=== PATIENT | female | born 1950 | race Caucasian/White ===

== ENCOUNTER 2017-01-18 15:08 | Emergency (ER) | payer MEDICARE, BC ==
[~2017-01-18 15:08] MED LIST: ASAB PO; ASABAYER PO; ATV1 PO; CALTRA600D PO; CELEXA10 PO; CELEXA20 PO; CENTRUM TAB1 TAB PO; CO Q-10100 MG PO; COREGCR20 PO; DIOV80 PO; L20 PO; MUCINEX1200 MG PO; MULTIPLE VIT PO; PREDFORTE OPH; PREDMILDOP OPH; PRILOSEC40 MG PO; TUMERIC; VALTREX1 GM PO; VITAMIN B-121000 MC1 SL; WELLSR150 PO; ZOVI200CAP PO; unable to recall
[2017-01-18 18:14] LABS: BASOPHILS 0.5 %; BASOPHILS ABSOLUTE 0.03 10/3/uL (0.0-0.16); EOSINOPHILS 2.4 %; EOSINOPHILS ABSOLUTE 0.15 10/3/uL (0.0-0.53); HEMATOCRIT 41.1 % (36.0-48.0); HEMOGLOBIN 13.9 g/dL (12.0-16.0); IMMATURE GRANULOCYTES 0.2 %; IMMATURE GRANULOCYTES ABSOLUTE 0.01 10/3/uL (0.0-0.11); LYMPHOCYTES 41.6 %; LYMPHOCYTES ABSOLUTE 2.61 10/3/uL (0.67-4.30); MEAN CORPUS HGB CONC 33.8 g/dL (32.0-36.0); MEAN CORPUSCULAR HEMOGLOB 32.9 pg (26.0-34.0); MEAN CORPUSCULAR VOLUME 97.4 fL (80-100); MEAN PLATELET VOLUME 9.1 fL (9.2-13.0); MONOCYTES 7.5 %; MONOCYTES ABSOLUTE 0.47 10/3/uL (0.21-1.20); NEUTROPHILS 47.8 %; NEUTROPHILS ABSOLUTE 3.01 10/3/uL (2.02-8.40); PLATELET COUNT 321 10/3/uL (150-400); RED CELL COUNT 4.22 10/6/uL (4.0-5.6); WHITE BLOOD CELLS 6.3 10/3/uL (4.5-10.5)
[2017-01-18 18:15] LABS: MANUAL DIFF NO %
[2017-01-18 18:26] LABS: PARTIAL THROMBO TIME 31.3 SEC (22.5-37.2); PROTIME (NOT ORD) 12.9 SEC (12.0-14.5)
[2017-01-18 18:31] LABS: BUN (BLOOD UREA NITROGEN) 19 MG/DL (6-23); CHEST PAIN PROFILE TAT 0 Hrs 21 Mins; CHLORIDE, SERUM 101 MMOL/L (96-112); CO2 (CARBON DIOXIDE) 29 MMOL/L (24-34); CREATININE 0.96 MG/DL (0.55-1.02); GFR AFRICAN AMERICAN 71 ML/MIN (>=60); GFR NON AFRICAN AMERICAN 61 ML/MIN (>=60); GLUCOSE, SERUM 82 MG/DL (60-99); SODIUM, SERUM 140 MMOL/L (135-148); TROPONIN I <0.02 NG/ML (<0.05)
== END 2017-01-18 19:28 | disposition home or self-care (01) ==
LOC: ER 15:08
PROVIDERS: Emergency Medicine
DX: R07.89 Other chest pain (principal); M79.2 Neuralgia and neuritis, unspecified; I10 Essential (primary) hypertension; K21.9 Gastro-esophageal reflux disease without esophagitis; F32.9 Major depressive disorder, single episode, unspecified; F41.9 Anxiety disorder, unspecified; I42.7 Cardiomyopathy due to drug and external agent; Z87.891 Personal history of nicotine dependence; Z85.3 Personal history of malignant neoplasm of breast; Z88.1 Allergy status to other antibiotic agents; Z88.8 Allergy status to other drugs, medicaments and biological substances; Z79.82 Long term (current) use of aspirin; Z79.52 Long term (current) use of systemic steroids; Z79.899 Other long term (current) drug therapy
CPT/HCPCS: 71020; 80048; 83735; 84484; 85025; 85610; 85730; 93005; 99285

== ENCOUNTER 2017-06-26 21:31 | Observation (INO) | payer MEDICARE, BC ==
[~2017-06-26] VITALS: Ht 160 cm; Wt 71.0 kg
--- NOTE | ~2017-06-26 | CN ---
Consultation Report [facility] [address] [place] [place]. [address] NAME: SAMUEL PATRICIA : 48 STATUS : ADM Lindsay PAT#: [id number] AGE: 67 ADM/REG DATE : 06/26/17 MR#: [id number] REPORT SERV DATE: 06/27/17 DICTATED BY: BERNIE LAGUERRE DATE: 06/27/17 REPORT STATUS : Draft TRANSCRIBED BY: MODKike DATE: 06/27/17 NEUROLOGY CONSULTATION DATE OF CONSULTATION: 06/27/2017 REASON FOR CONSULTATION: Syncopal episode with collapse (possible stroke and/or seizure). HOSPITALIST: Dr. Xiomara Naqvi. HISTORY OF PRESENT ILLNESS: The patient is a 67-year-old female, who was [employer] yesterday with her family. She had just eaten and had shrimp and vegetables. She did not have an alcoholic beverage. 15 minutes after eating, she was sitting at the table talking with her family, she started to "feel funny," when asked to describe how she felt, she could not. She felt like she might pass out and could not form words, although she knew what she wanted to say. The patient stated she could not keep her eyes open, but she was not drowsy. She put her head down on the table because she thought she was going to pass out. The plaster patternmaker and conference services manager of a restaurant came to her rescue and laid her down on the floor on her side. She could hear voices, but thought they were at a distance. According to her family, it was reported that her left shoulder was twitching. She was not incontinent of urine or stool. She did not bite her tongue or cheek. This episode lasted 30 seconds to 1 minute. 911 was called and she was brought to [facility] for further evaluation and treatment. She did awaken after this episode, but was not drowsy. She was fairly alert and was able to communicate appropriately. She did; however, mention that she was not "herself." The patient mentions that she had a similar episode two years ago in the doctor's office. She passed out and was told that she was volume depleted. The patient went to see the [facility], and while she was out in the wooded area, she pulled 24 ticks off her body. She was not treated with antibiotics, even though she went to seek medical attention. She is concerned that she may have some sort of Belvedere spotted fever or Lyme disease. She denies any stroke, any febrile illness, but still is concerned. PAST MEDICAL HISTORY: Anxiety, post traumatic stress disorder, history of breast cancer status post mastectomy and chemotherapy, chemotherapy-induced cardiomyopathy, herpes simplex, hypertension, and GERD. PAST SURGICAL HISTORY: Corneal transplants (bilateral), tonsillectomy and adenoidectomy, and bilateral mastectomy. MEDICATIONS: Home medication list consists of aspirin 81 mg daily, calcium with vitamin D daily, vitamin D 2000 units daily, Benadryl 50 mg at bedtime p.r.n. insomnia, ophthalmic solution fluorometholone 0.1% to both eyes daily, Lasix 40 mg tablet three-fourth which is 30 mg daily, Ativan 1 mg 1100 and 1600, Ativan 0.5 mg at bedtime, Prilosec 20 mg daily, Valtrex 500 mg daily, and Diovan 40 mg daily. Consultation Report [address] [place]. [address] NAME: SAMUEL PATRICIA : 48 STATUS : ADM Lindsay PAT#: [id number] AGE: 67 ADM/REG DATE : 06/26/17 MR#: [id number] REPORT SERV DATE: 06/27/17 DICTATED BY: BERNIE LAGUERRE DATE: 06/27/17 REPORT STATUS : Draft TRANSCRIBED BY: RAGHAVENDRA DATE: 06/27/17 ALLERGIES: ALTACE, BIAXIN, ZITHROMAX, AND EPINEPHRINE. SOCIAL HISTORY: The patient is . She has four children. She teaches earth science. She does not smoke. She rarely drinks alcohol or uses illicits. FAMILY HISTORY: The patient's mother from esophageal cancer, and her father from lung cancer. She has one brother and one sister who are alive and healthy. REVIEW OF SYSTEMS: For pertinent positives, please refer to the HPI. PHYSICAL EXAMINATION: GENERAL: The patient stands 5 feet 3 inches tall and weighs 156 pounds. NEUROLOGIC: The patient is pleasant, cooperative, communicates appropriately. Occasionally, she will have a little expressive aphasia, but there is no dysarthria. No anomia. Pupils are 3 mm PERRLA. Cranial nerves 2 through 12 are intact. Vision via confrontation is full in both rubin. Ceqgmt-qt-ofhq, no ataxia. Pflx-xh-qgmh, no ataxia. Upper extremity strength is 5/5. Upper DTRs 2+ bilaterally. No sensory deficits in the upper extremities. Lower extremities strength is 5/5. Lower DTRs 2+ bilaterally. Downgoing toes. No sensory deficits. The patient has good locomotion. There is no ataxia. Romberg is negative. NECK: No carotid bruits, JVD, or thyromegaly. CHEST: Lung sounds are clear. CARDIAC: Regular rate and rhythm. LABORATORY DATA: CBC is normal. BMP is normal. Cholesterol values are mildly elevated with a total cholesterol of 170, and LDL of 100. TSH is normal. Urine drug screen is positive for benzos. CTA of the chest is negative. Chest x-ray is negative. CT of the brain, negative. ASSESSMENT/PLAN: 1. Syncopal episode of unknown etiology. The patient will undergo an EEG, be placed on seizure precautions. Orthostatic vital signs will be checked every shift. She will have an MRI of the brain without gadolinium and an MRA of the head and neck with gadolinium. Echocardiogram with bubble study will be done. 2. Multiple tick bites. Testing will be done for Belvedere Spotted fever, Ehrlichia and Lyme. In the meantime, she will be placed prophylactically on doxycycline 100 mg b.i.d. for 21 days. This is to be taken with food. Hospitalist Service was consulted with this decision. Thank you again for including us in consultation. We will continue to follow with you. Dr. Bernie Laguerre, collaborating physician was made aware of the case and plan of care. DICTATED BY: Julia Castelan DNP, ACNP- Consultation Report [address] [address] NAME: SAMUEL PATRICIA : 49 STATUS : ADM Lindsay PAT#: [id number] AGE: 67 ADM/REG DATE : 06/26/17 MR#: [id number] REPORT SERV DATE: 06/27/17 DICTATED BY: BERNIE LAGUERRE DATE: 06/27/17 REPORT STATUS : Draft TRANSCRIBED BY: RAGHAVENDRA DATE: 06/27/17 MARLENI/RAGHAVENDRA Bernie Laguerre MD / [id number] CC: Ayah Yanes M.D.
--- NOTE | ~2017-06-26 | EEG ---
Electroencephalogram [place] [address] [place]. [address] NAME: SAMUEL PATRICIA : 48 STATUS : ADM Lindsay PAT#: [id number] AGE: 67 ADM/REG DATE : 06/26/17 MR#: [id number] REPORT SERV DATE: 06/28/17 DICTATED BY: BERNIE LAGUERRE DATE: 06/28/17 REPORT STATUS : Draft TRANSCRIBED BY: MODL DATE: 06/28/17 ELECTROENCEPHALOGRAPHY REPORT ORDERING: Julia Castelan APN REASON FOR EEG: Syncope versus seizures. DESCRIPTION: 23 surface electrodes, 10-20 international placement was used. The patient was noted to be awake and drowsy throughout the study. Brief periods of stage 1 and 2 sleep were recorded. The background activity consisted of moderate voltage well-organized 10 cycles per second located in the posterior head regions. This alpha range activity attenuated well with the eye opening maneuvers. Photic stimulation produced a good driving response. No significant asymmetry of cerebral activity was present. No paroxysmal epileptiform features were noted. Moderate amount of low-voltage beta range activity was seen. Sleep spindle and vertex sharp activity was noted during light sleep. No significant abnormalities were observed. IMPRESSION: THIS EEG IS WITHIN NORMAL RANGE FOR AN AWAKE AND DROWSY STATE. BRIEF PERIODS OF LIGHT SLEEP WERE RECORDED. THE PATIENT'S HOSPITAL DIRECTOR SHOWS SINUS RHYTHM, RATE OF APPROXIMATELY 72 BEATS PER MINUTE. CLINICAL CORRELATION IS RECOMMENDED. NNAMDI/RAGHAVENDRA Bernie Laguerre MD / [id number] CC: Ayah Yanes M.D.
--- NOTE | ~2017-06-26 | HP ---
History And Physical [place] [address] [place]. [address] NAME: SAMUEL PATRICIA : 49 STATUS : ADM Lindsay PAT#: [id number] AGE: 67 ADM/REG DATE : 06/26/17 MR#: [id number] REPORT SERV DATE: 06/27/17 DICTATED BY: RITA ARIAS DATE: 06/27/17 REPORT STATUS : Draft TRANSCRIBED BY: RAGHAVENDRA DATE: 06/27/17 DATE OF ADMISSION: 06/26/2017 CHIEF COMPLAINT: Possible syncopal event. HISTORY OF PRESENT ILLNESS: The patient is a 67-year-old white female who was eating dinner at [employer], felt like she was going to faint, she went pale, her left shoulder started to shake. Apparently, she was out for about 15 minutes. Her said she may have stopped breathing. The patient denied she lose consciousness. The patient also stated she had problem forming words. It does not sound like there was any type of postictal problem. The patient denies running out of her Ativan. She does state she has an anxiety disorder. She does have a history of breast cancer, and 10 years ago she had a double mastectomy. It was a stage 3c low-grade lobular carcinoma of the right breast. The patient also apparently had a tick exposure with 25 ticks on her body recently. PAST MEDICAL HISTORY: Anxiety, PTSD, breast cancer 10 years ago. She had a cardiomyopathy after her breast cancer, which is largely resolved. She now has an ejection fraction of 51%. PAST SURGICAL HISTORY: She has corneal transplants, tonsillectomy, and a double mastectomy. SOCIAL HISTORY: Does not smoke. Rare alcohol. . She was a teacher of [employer]. She is a full code. FAMILY HISTORY: Mom of lung cancer. Dad of esophageal cancer. ALLERGIES: THE PATIENT IS ALLERGIC TO BIAXIN, CAUSES HEART ARRHYTHMIAS; EPHEDRINE AND ADDERALL. NOTE, THE PATIENT IS ALSO ALLERGIC TO ALTACE AND ZITHROMAX. MEDICATIONS: The patient is currently on aspirin 81 mg daily, vitamin D 1200 mg daily, Coreg 12.5 mg b.i.d., cholecalciferol 2000 units daily, Benadryl 50 mg at bedtime as needed, eye drops, Lasix 30 mg daily, Ativan 1 mg at 11 and at 4 o'clock and 1.5 mg at bedtime, Prilosec 20 mg daily, valacyclovir 1 mg daily, Diovan 40 mg daily. REVIEW OF SYSTEMS: CONSTITUTIONAL: No fever, sweats, or rigors. EYES: No blurred or double vision, vision loss or glaucoma. HENT: No headache, hearing loss, or tinnitus. CARDIOVASCULAR: No chest pain, palpitations. She did have syncope episode. No PND, edema, dyspnea on exertion. RESPIRATORY: No cough, wheezing, or pleuritic pain. GASTROINTESTINAL: No nausea, vomiting, hematemesis, or abdominal pain. MUSCULOSKELETAL: She does have arthralgia, arthritis. INTEGUMENT: No rash or suspicious skin lesions. NEUROLOGIC: No memory loss, gait disturbance, or weakness. HEMATOLOGIC: No anemia, iron deficiency, or B12 deficiency. History And Physical [address] [address] NAME: SAMUEL PATRICIA : 49 STATUS : ADM Lindsay PAT#: [id number] AGE: 67 ADM/REG DATE : 06/26/17 MR#: [id number] REPORT SERV DATE: 06/27/17 DICTATED BY: RITA ARIAS DATE: 06/27/17 REPORT STATUS : Draft TRANSCRIBED BY: RAGHAVENDRA DATE: 06/27/17 PSYCHIATRIC: She does have history of depression and anxiety. : No dysuria, hematuria, or nephrolithiasis. ENDOCRINE: No history of diabetes. PHYSICAL EXAMINATION: VITAL SIGNS: Blood pressure is 138/58, temperature 97.6, pulse 73, respirations 20, O2 saturation 98% on room air. CONSTITUTIONAL: Alert, appropriate. PSYCHIATRIC: Oriented x3. Memory intact. Affect appropriate. HEENT: Atraumatic and normocephalic. Oral palate without lesion. EYES: Pupils are reactive. Anicteric. Conjunctivae clear. NECK: No adenopathy. Supple. No thyromegaly or masses. RESPIRATORY: Clear to percussion and auscultation. No chest wall tenderness. CARDIOVASCULAR: Regular rate and rhythm. No murmurs. No carotid or femoral bruits. Distal pulses intact. ABDOMEN: Soft, nontender. No masses. No hepatosplenomegaly. No hernias. Bowel sounds present. SKIN: No rash or suspicious lesions. NEUROLOGIC: Cranial nerves II through XII intact. Deep tendon reflexes are symmetric. Sensation intact. LYMPHATIC: No adenopathy in the neck, axilla, or femoral region. No peripheral edema. MUSCULOSKELETAL: Range of motion intact in upper and lower extremities. DATA: Head CT unremarkable. LABORATORY WORK: Hemoglobin 13.7, white count 9.2, platelet 262. Sodium 139, potassium 4.2, BUN 19, creatinine 1.3, glucose 130. Lactate 1.4. Sed rate 7. TSH 1.38. IMPRESSION/PLAN: 1. Transient ischemic attack versus seizure. We will ask Neurology to see. We will order MRI and EEG. The patient is already on an aspirin. 2. History of breast cancer. 3. Nonischemic cardiomyopathy, largely resolved. 4. Anxiety disorder. 5. Hypertension. NGM/MODL Rita Arias MD / [id number] CC: Raghav Cisneros M.D.
--- NOTE | ~2017-06-26 | DS ---
Discharge Summary [facility] [address] [place]. [address] NAME: SAMUEL PATRICIA : 48 STATUS : ADM Lindsay PAT#: [id number] AGE: 67 ADM/REG DATE : 06/26/17 MR#: [id number] REPORT SERV DATE: 06/28/17 DICTATED BY: XIOMARA NAQVI DATE: 06/28/17 REPORT STATUS : Draft TRANSCRIBED BY: MODL DATE: 06/28/17 ADMISSION DATE: 06/26/2017 DISCHARGE DATE: 06/28/2017 DISCHARGE DIAGNOSES: 1. Syncope/near syncope episode. 2. Acute kidney injury and dehydration. 3. Anxiety. 4. Hypertension. 5. Recent multiple tick bite, doxycycline. Treatment was started on this admission and serologies obtained. Result has not come back yet. 6. History of a chemo-induced heart failure. No evidence of clinical heart failure at this point. CONSULTANTS: Dr. Laguerre, neurologist. PROCEDURES: 1. EEG did not show any activity of focal seizure. 2. MRI and MRA of the brain did not show any acute stroke. 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 HISTORY OF PRESENT ILLNESS: This is a 67-year-old female patient who does have a history of right breast cancer with chemo-induced heart failure which recovered, was brought to the hospital with episodes of near syncopal episode. Please see dictated H and P. HOSPITAL COURSE: The patient was admitted to hospital with syncope and near syncopal episode and also persistent seizure. Seen by neurologist on this admission and had evaluation with a MRI, MRA, and also EEG. Meanwhile, she was found to have an acute kidney injury with evidence of dehydration. She was given a very gentle hydration and her diuretics was on hold for two days. She is still not showing any evidence of a volume overload yet with this treatment. She tolerated very well. She is back into euvolemic now and she is doing really well. After all this negative workup, final diagnosis of discharge is found to be acute kidney injury with dehydration led to the syncopal episode and recommending as may need to consider cutting down her diuretics, but the patient has a coming appointment with her mold closer helper at [facility] in [place] and recommended to cut down her Lasix down to 20 mg every day while she gets next appointment with her own mold closer helper and she voiced understanding. DISCHARGE MEDICATIONS: 1. Doxycycline 100 mg twice a day until 07/17/2017. 2. Her Lasix was decreased from 30 mg per day down to 20 mg a day and rest of her medications are not changed. DISPOSITION: The patient is discharged to home in stable condition. She maximized inpatient benefit. Will be discharged to home and follow up with her mold closer helper and primary care physician. Discharge Summary [address] [address] NAME: SAMUEL PATRICIA : 48 STATUS : ADM Lindsay PAT#: [id number] AGE: 67 ADM/REG DATE : 06/26/17 MR#: [id number] REPORT SERV DATE: 06/28/17 DICTATED BY: XIOMARA NAQVI DATE: 06/28/17 REPORT STATUS : Draft TRANSCRIBED BY: RAGHAVENDRA DATE: 06/28/17 LANE/RAGHAVENDRA Xiomara Naqvi M.D. / [id number] CC: Ayah Yanes M.D.
[2017-06-26 23:19] LABS: BASOPHILS 0.3 %; BASOPHILS ABSOLUTE 0.03 10/3/uL (0.0-0.16); EOSINOPHILS 0.7 %; EOSINOPHILS ABSOLUTE 0.06 10/3/uL (0.0-0.53); HEMATOCRIT 39.7 % (36.0-48.0); HEMOGLOBIN 13.7 g/dL (12.0-16.0); IMMATURE GRANULOCYTES 0.2 %; IMMATURE GRANULOCYTES ABSOLUTE 0.02 10/3/uL (0.0-0.11); LYMPHOCYTES 26.3 %; LYMPHOCYTES ABSOLUTE 2.42 10/3/uL (0.67-4.30); MEAN CORPUS HGB CONC 34.5 g/dL (32.0-36.0); MEAN CORPUSCULAR HEMOGLOB 33.7 pg (26.0-34.0); MEAN CORPUSCULAR VOLUME 97.8 fL (80-100); MEAN PLATELET VOLUME 10.2 fL (9.2-13.0); MONOCYTES 5.7 %; MONOCYTES ABSOLUTE 0.52 10/3/uL (0.21-1.20); NEUTROPHILS 66.8 %; NEUTROPHILS ABSOLUTE 6.14 10/3/uL (2.02-8.40); PLATELET COUNT 262 10/3/uL (150-400); RBC DISTRIBUTION WIDTH 12.6 % (12.0-16.0); RED CELL COUNT 4.06 10/6/uL (4.0-5.6)
[2017-06-26 23:23] LABS: ER CBC TAT 0 Hrs 15 Mins; MANUAL DIFF NO %; WHITE BLOOD CELLS 9.2 10/3/uL (4.5-10.5)
[2017-06-26 23:28] LABS: PARTIAL THROMBO TIME 28.8 SEC (22.5-37.2); PROTIME (NOT ORD) 13.3 SEC (12.0-14.5)
[2017-06-26] MEDS ORDERED: ATV1 PO ×3 (23:31→23:33)
[2017-06-26] MEDS ORDERED: COREG12 PO (23:35)
[2017-06-26] MEDS ORDERED: DIOVAN40 MG PO (23:36)
[2017-06-26] MEDS ORDERED: VALTREX5 PO (23:36)
[2017-06-26] MEDS ORDERED: PRILO PO (23:36)
[2017-06-26] MEDS ORDERED: FML OPH SUSP5 ML OPH (23:37)
[2017-06-26] MEDS ORDERED: L20 PO (23:38)
[2017-06-26 23:39] LABS: LACTATE 1.4 MMOL/L (0.3-2.4)
[2017-06-26] MEDS ORDERED: CALTRA600D PO (23:39)
[2017-06-26] MEDS ORDERED: ASAB PO (23:39)
[2017-06-26] MEDS ORDERED: VITAMIN D2000 UNIT PO (23:39)
[2017-06-26] MEDS ORDERED: BEN25 PO (23:43)
[2017-06-27 00:08] LABS: ALBUMIN 3.5 G/DL (3.5-5.0); BUN (BLOOD UREA NITROGEN) 18 MG/DL (6-23); CALCIUM, SERUM 8.9 MG/DL (8.5-10.4); CHEST PAIN PROFILE TAT 1 Hrs 00 Mins; CHLORIDE, SERUM 107 MMOL/L (96-112); CREATININE 1.31 MG/DL (0.55-1.02); GFR AFRICAN AMERICAN 48 ML/MIN (>=60); GFR NON AFRICAN AMERICAN 42 ML/MIN (>=60); SGPT(ALT) 22 U/L (5-65); SODIUM, SERUM 139 MMOL/L (135-148); TOTAL BILIRUBIN 0.5 MG/DL (0-1.2); TOTAL PROTEIN 6.6 G/DL (6.0-8.5); TROPONIN I <0.02 NG/ML (<0.05)
[2017-06-27 00:09] LABS: ACETAMINOPHEN LEVEL (TYLENOL) < 2.0 MCG/ML (10.0-20.0); ALKALINE PHOSPHATASE 71 U/L (45-117); CO2 (CARBON DIOXIDE) 24 MMOL/L (24-34); DIRECT BILIRUBIN 0.1 MG/DL (0.0-0.4); GLUCOSE, SERUM 130 MG/DL (60-99); INDIRECT BILIRUBIN(NOT ORDER) 0.4 MG/DL (0.1-0.9); POTASSIUM, SERUM 4.2 MMOL/L (3.5-5.3); SGOT(AST) 36 U/L (5-40)
[2017-06-27 00:10] LABS: ALCOHOL < 10 MG/DL (0); SALICYLATE < 1.7 MG/DL (-)
[2017-06-27 01:08] LABS: ASCORBIC ACID (UR NOT ORDER) 40 (NEG); BILIRUBIN, URINE NEGATIVE (NEG); ER URINALYSIS TAT 0 Hrs 00 Mins; KETONE, URINE NEGATIVE (NEG); LEUKOCYTE ESTERASE(NOT OR NEG (NEG); NITRITE (URINE) NEG (NEG); WBC (NOT ORDERED) (RFLEX) 3 (0-5)
[2017-06-27 01:23] LABS: AMPHETAMINES (NOT ORD) NEG (NEG); BARBITURATES (NOT ORDERED NEG (NEG); BENZODIAZEPINES (NOT ORD) POS (NEG); CANNABINOIDS (THC) NEG (NEG); COCAINE (NOT ORDERED) NEG (NEG); OPIATES NEG (NEG); PHENCYCLIDINE(PCP) NEG (NEG); TRICYCLICS NEG (NEG)
[2017-06-27 01:30] LABS: SED RATE 7 MM/HR (0-20)
[2017-06-27 08:04] LABS: CHOL/HDL RATIO(NOT ORDER) 3.2 (0-5); CHOLESTEROL 170 MG/DL (< 200); CPK (IF ELEVATED MB BANDS) 58 U/L (0-200); HDL CHOLESTEROL 53 MG/DL (> 49); LDL CHOLESTEROL 100 MG/DL (< 130); NON-HDL CHOLESTEROL 117 MG/DL (< 160); TRIGLYCERIDE 85 MG/DL (< 150); TROPONIN I <0.02 NG/ML (<0.05)
[2017-06-27 12:21] LABS: ALBUMIN 3.4 G/DL (3.5-5.0); ALKALINE PHOSPHATASE 71 U/L (45-117); SGOT(AST) 15 U/L (5-40); SGPT(ALT) 19 U/L (5-65); TOTAL BILIRUBIN 0.4 MG/DL (0-1.2); TOTAL PROTEIN 6.3 G/DL (6.0-8.5)
[2017-06-27 12:22] LABS: DIRECT BILIRUBIN < 0.1 MG/DL (0.0-0.4); FOLATE 59.9 NG/ML (>5.2); INDIRECT BILIRUBIN(NOT ORDER) 0.3 MG/DL (0.1-0.9)
[2017-06-27 12:37] LABS: CK-MB 0.7 NG/ML; CPK 73 U/L (0-200); TROPONIN I <0.02 NG/ML (<0.05)
[2017-06-28 06:45] LABS: INTERNATIONAL NORMAL RATI 1.1 UNITS (-); PROTIME (NOT ORD) 13.8 SEC (12.0-14.5)
[2017-06-28 06:46] LABS: PARTIAL THROMBO TIME 30.7 SEC (22.5-37.2)
[2017-06-28 06:59] LABS: CK-MB 0.7 NG/ML; CPK 55 U/L (0-200); TROPONIN I <0.02 NG/ML (<0.05)
[2017-06-28 11:17] LABS: CALCIUM, SERUM 8.3 MG/DL (8.5-10.4); CO2 (CARBON DIOXIDE) 24 MMOL/L (24-34); CREATININE 0.99 MG/DL (0.55-1.02); GFR AFRICAN AMERICAN 68 ML/MIN (>=60); GFR NON AFRICAN AMERICAN 59 ML/MIN (>=60)
[2017-06-28 11:18] LABS: BUN (BLOOD UREA NITROGEN) 20 MG/DL (6-23); GLUCOSE, SERUM 90 MG/DL (60-99)
[2017-06-28 11:25] LABS: CHLORIDE, SERUM 113 MMOL/L (96-112); SODIUM, SERUM 143 MMOL/L (135-148)
[2017-06-28] MEDS ORDERED: MONODOX100 MG PO (16:55)
[2017-06-30 19:52] LABS: LYME AB SCREEN RESULT Negative (NEG)
[2017-07-02 15:17] LABS: RICKETTSIA TYPHI AB IGG <1:64 (LTD64); RICKETTSIA TYPHI AB IGM <1:64 (LTD64); ROCKY MTN SPOTTED FEVER AB IGM <1:64 (LTD64)
== END 2017-06-28 18:36 | disposition home or self-care (01) ==
LOC: ER 21:31 → 2SO 23:59
PROVIDERS: Internal Medicine; Nurse Practitioner
DX: N17.9 Acute kidney failure, unspecified (principal); E86.0 Dehydration; R55 Syncope and collapse; I10 Essential (primary) hypertension; F41.9 Anxiety disorder, unspecified; F43.10 Post-traumatic stress disorder, unspecified; K21.9 Gastro-esophageal reflux disease without esophagitis; Z85.3 Personal history of malignant neoplasm of breast; Z80.1 Family history of malignant neoplasm of trachea, bronchus and lung; Z80.0 Family history of malignant neoplasm of digestive organs; Z90.13 Acquired absence of bilateral breasts and nipples; Z94.7 Corneal transplant status; Z90.89 Acquired absence of other organs; Z88.1 Allergy status to other antibiotic agents; Z88.8 Allergy status to other drugs, medicaments and biological substances; Z79.82 Long term (current) use of aspirin; Z79.899 Other long term (current) drug therapy
CPT/HCPCS: 70450; 70544; 70548; 70551-52; 71010; 71275; 80048; 80061; 80076; 80305; 80307; 81001; 82140; 82533; 82550; 82553; 82607; 82746; 83036; 83605; 83735; 83880; 84443; 84484; 85025; 85610; 85652; 85730; 86618; 86757; 86757-59; 93005; 95819; 96372; 96374; 96375; 96376; 99285; A9270-GY; A9577; G0378; Q9967